=== PATIENT | female | born 1970 | race American Indian/Alaskan Native ===

== ENCOUNTER 2021-03-30 19:28 | Emergency (ER) | payer BC ==
[2021-03-30 20:48] VITALS: BP 146/73
--- NOTE | 2021-03-30 21:06 | Emergency Department Report ---
ED General Adult HPI - General Chief complaint: Animal Bite Stated complaint: DOG BITE PUI?: No Time Seen by Provider: 03/30/21 21:02 Source: patient, RN notes reviewed Mode of arrival: Ambulatory Limitations: No Limitations - History of Present Illness Initial comments: The patient was evaluated in the emergency department for symptoms described in the history of present illness. He/she was evaluated in the context of the global COVID-19 pandemic, which necessitated consideration that the patient might be at risk for infection with the virus that causes COVID-19. Institutional protocols and algorithms that pertain to the evaluation of patients at risk for COVID-19 are in a state of rapid change based on information released by regulatory bodies including the CDC and federal and state organizations. These policies and algorithms were followed during the patient's care in the emergency department. Please note that these policies, procedures and recommendations changed on a rapid basis. The patient is a 50-year-old female, who is right-hand dominant, who reports a history of lupus. She is visiting from [place]. She does not have a local primary care doctor or contract coordinator. She is uncertain how long she will remain here in [place]. The patient presents to the ER with a complaint of a provoked dog bite to her right hand. The dog's vaccination status is not known. The patient states that the dog went to go up and smell her, was not aggressive or foaming at the mouth, and she attempted to redirect the dog. The dog bit her right hyperthenar eminence, and right dorsal lateral aspect of her hand. She denies additional injuries and complaints. She has not washed her hand. She has sharp throbbing aching pain in the hand. It increases with palpation and range of motion. It decreases with rest. The patient denies additional injuries and complaints. This happened at around 6:00 PM. -: Sudden, hour(s) Location: right, upper extremity Radiation: non-radiation Quality: aching Improves with: rest Worsens with: movement Associated Symptoms: denies other symptoms - Related Data Previous Rx's Medication Instructions Recorded Last Taken Type Acetaminophen [Non-Aspirin Extra 500 mg PO Q6HR PRN #30 tablet 03/30/21 Unknown Rx Strength] Amoxicillin/K Clav Tab [Augmentin 1 tab PO Q12HR #13 tab 03/30/21 Unknown Rx 875 mg] Ibuprofen [Motrin] 600 mg PO Q8H PRN #30 tablet 03/30/21 Unknown Rx Allergies Allergy/AdvReac Type Severity Reaction Status Date / Time No Known Allergies Allergy Verified 03/30/21 21:26 ED Review of Systems ROS: Stated complaint: DOG BITE Other details as noted in HPI Constitutional: see HPI Eyes: as per HPI ENT: as per HPI Respiratory: see HPI Cardiovascular: as per HPI Endocrine: see HPI Gastrointestinal: as per HPI Genitourinary: as per HPI Musculoskeletal: as per HPI, myalgia Skin: as per HPI, other (Bite wounds to the hand) Neurological: as per HPI. denies: numbness Psychiatric: as per HPI Hematological/Lymphatic: as per HPI ED Past Medical Hx - Social History Smoking Status: Unknown if ever smoked Substance Use Type: None - Medications Home Medications: Home Medications Medication Instructions Recorded Confirmed Last Taken Type Acetaminophen [Non-Aspirin Extra 500 mg PO Q6HR PRN #30 tablet 03/30/21 Unknown Rx Strength] Amoxicillin/K Clav Tab [Augmentin 1 tab PO Q12HR #13 tab 03/30/21 Unknown Rx 875 mg] Ibuprofen [Motrin] 600 mg PO Q8H PRN #30 tablet 03/30/21 Unknown Rx ED Physical Exam - General Limitations: No Limitations General appearance: alert, anxious - Head Head exam: Present: atraumatic, normocephalic - Eye Eye exam: Present: normal appearance, EOMI. Absent: nystagmus - ENT ENT exam: Present: normal exam, normal orophraynx, mucous membranes moist, normal external ear exam - Neck Neck exam: Present: normal inspection, full ROM - Respiratory Respiratory exam: Absent: respiratory distress, stridor - Extremities Exam Extremities exam: Present: full ROM (Full range of motion and functionality to the fingers in the right hand. Wrist, elbow, shoulder range of motion intact. Sensation intact to light touch in the median, radial, ulnar distribution in the right upper), tenderness (There is point tenderness over the thenar eminence and dorsal lateral aspect of the right hand), normal capillary refill, other (2+ pulses noted in the right upper extremity. Capillary refill is brisk and inta ct. Thumb opposition, abduction, adduction, flexion, extension circumduction, range of motion intact). Absent: normal inspection (There is a 0.5 cm puncture wound noted to the lateral aspect of the thenar eminence. There is a smaller puncture wounds noted on the dorsal lateral aspect of the right hand) - Back Exam Back exam: Present: normal inspection, full ROM - Neurological Exam Neurological exam: Present: alert, oriented X3, other (There is no facial droop. The tongue is midline. EOMI. GCS 15. 5 out of 5 strength in four extremities.) - Psychiatric Psychiatric exam: Present: anxious - Skin Skin exam: Present: warm, dry, intact, normal color ED Course Vital Signs 03/30/21 03/30/21 20:16 20:47 Temperature 98.6 F Pulse Rate 77 Respiratory 18 18 Rate Blood Pressure 150/82 Blood Pressure 146/73 [Left] O2 Sat by Pulse 97 Oximetry - Reevaluation(s) Reevaluation #1: 03/30/21 21:58 X-ray negative. Patient sitting comfortably in stretcher. We will discharge. ED Medical Decision Making - Lab Data Vital Signs 03/30/21 03/30/21 20:16 20:47 Temperature 98.6 F Pulse Rate 77 Respiratory 18 18 Rate Blood Pressure 150/82 Blood Pressure 146/73 [Left] O2 Sat by Pulse 97 Oximetry - Radiology Data Radiology results: pending, report reviewed, image reviewed X-ray of the right hand shows no fracture, dislocation, or foreign body. RIGHT HAND 3 VIEW(S) INDICATION / CLINICAL INFORMATION: right hand dog bite COMPARISON: None available. FINDINGS: BONES / JOINT(S): No acute fracture or subluxation. No significant arthritis. SOFT TISSUES: No significant abnormality. No radiopaque foreign body. ADDITIONAL FINDINGS: None. Signer Name: Lucy Doll MD Signed: 03/30/2021 8:52 PM Workstation Name: [id number] - Medical Decision Making Differential diagnosis, including but not limited to: Dog bite to right hand, encounter for medical screening examination Assessment and plan: 50-year-old female, who presents to the ER with a complaint of dog bite to the right hand. The patient states the dog was not aggressive or foaming at the mouth, and bit her after she attempted to shoot the dog away. However, she does not know the vaccination status of the dog. Because of this, we have recommended initiation of rabies vaccination series, and administration of rabies immunoglobulin. The patient is up-to-date on tetanus vaccination. The patient is neurovascularly intact, and has no tendon dysfunction in the right hand that I can detect. Patient strongly encouraged to have the dog brought to her clamp forklift operator for c learance for rabies. However, should the dog not be cleared or not present to a clamp forklift operator, patient will be discharged with pain medication, prophylactic antibiotics, and schedule of rabies vaccination series, to be completed as an outpatient. I also strongly encouraged the patient and instructed her to wash her right upper hand with soap and water for 5 to 10 minutes. Critical care attestation.: If time is entered above; I have spent that time in minutes in the direct care of this critically ill patient, excluding procedure time. ED Disposition Clinical Impression: Dog bite of hand Qualifiers: Encounter type: initial encounter Laterality: right Qualified Code(s): S61.451A - Open bite of right hand, initial encounter; W54.0XXA - Bitten by dog, initial encounter Disposition: HOME / SELF CARE / HOMELESS Is pt being admited?: No Does the pt Need Aspirin: No Condition: Good Additional Instructions: Recommend the patient wash hands with soap and water every 8-12 hours. Otherwise, keep hand dry, and uncovered. Take the pain medication as needed, and antibiotics as directed. Recommend that the dog that bit the patient be brought to a clamp forklift operator for examination and determine if rabies is present. Until a clamp forklift operator states that this dog does not have rabies, it is highly recommended that the patient complete a rabies vaccination series. The patient will need to follow-up on day three, seven, and fourteen to complete rabies vaccination series. Day three is April 02 Day seven is April 06. Day fourteen is April 13 The patient may follow-up with a primary care doctor, urgent care center, or health department to complete rabies vaccination series. It is very important to have the dog ruled out for rabies, or complete rabies vaccination series, as untreated rabies may be fatal. Please return to the emergency room right away with new pain, worsened pain, migration of pain, redness, pus, streaking, change in mental status, projectile vomiting, or inability to tolerate liquid feeds, or any new, worsened or different symptoms not present on the initial emergency room evaluation. For the patient's convenience, local primary care doctors and health department have been listed in this discharge paperwork. Prescriptions: Amoxicillin/K Clav Tab [Augmentin 875 mg] 1 tab PO Q12HR #13 tab Ibuprofen [Motrin] 600 mg PO Q8H PRN #30 tablet PRN Reason: Pain Acetaminophen [Non-Aspirin Extra Strength] 500 mg PO Q6HR PRN #30 tablet PRN Reason: Pain , Severe (7-10) Referrals: RUDOLPH GEORGE MD [Staff Physician] - 3-5 Days [facility] [Outside] - 3-[address] [facility] [Provider Group] - 3-5 Days
[2021-03-30] MEDS ORDERED: IBUPROFEN 600 MG TAB PO ONE (21:15)
[2021-03-30] MEDS ORDERED: ACETAMINOPHEN 325 MG TAB PO ONE (21:15)
[2021-03-30] MEDS ORDERED: AMOXICILLIN/K CLAV 875/125MG TAB PO ONE (21:15)
[2021-03-30] MEDS ORDERED: RABIES VACCINE, HUMAN DIPLOID/PF 2.5 UNIT/ML VIAL IM ONE (21:16)
[2021-03-30] MEDS ORDERED: RABIES IMMUNE GLOBULIN P/F 300 UNIT/ML INJ 5 ML IM ONE (21:16)
--- NOTE | 2021-03-30 21:56 | XRay Report ---
RIGHT HAND 3 VIEW(S) INDICATION / CLINICAL INFORMATION: right hand dog bite COMPARISON: None available. FINDINGS: BONES / JOINT(S): No acute fracture or subluxation. No significant arthritis. SOFT TISSUES: No significant abnormality. No radiopaque foreign body. ADDITIONAL FINDINGS: None. Signer Name: Lucy Doll MD Signed: 03/30/2021 9:52 PM Workstation Name: [id number]
== END 2021-03-31 04:40 | disposition home or self-care (01) ==
LOC: ED 19:28
DX: S61.451A Open bite of right hand, initial encounter (principal); W54.0XXA Bitten by dog, initial encounter; Y93.89 Activity, other specified; Y92.89 Other specified places as the place of occurrence of the external cause; Y99.8 Other external cause status
CPT/HCPCS: 90375; 90675; 99282